=== PATIENT | male | born 1995 | race Caucasian/White ===

== ENCOUNTER → 2025-05-22 | Outpatient (CLI) | payer MEDICAID, SELFPAY ==
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
== END | disposition home or self-care (01) ==
DX: R51.9 Headache, unspecified (principal)
CPT/HCPCS: 70551